=== PATIENT | male | born 1955 | race Two or more races ===

== ENCOUNTER 2024-11-19 09:16 | Outpatient (AMB) | payer MEDICAID, SELFPAY ==
--- NOTE | 2024-11-19 09:20 | PD.ORTHCLVIS ---
Vital signs 11/19/24 09:31 Height 1.7 m Height Method Stated Weight 91.427 kg Weight Measurement Method Standing Scale BMI 31.6 BP 215/112 H Blood Pressure Source Automatic Cuff Blood Pressure Location Left Upper Arm Position Sitting Respiration 18 Pulse 85 Pulse Source Monitor Temp 97.9 F Temp Source Temporal Artery Scan Pulse Oximetry (%) 98 Oxygen Delivery Method Room Air Med/Allergies Allergies & Medications Allergies No Known Allergies Allergy (Verified 11/19/24 09:32) Medication Reconciliation meloxicam 7.5 mg tablet 7.5 mg PO QDAY #45 tabs 11/19/24 [Rx] Exam Exam Breathing is nonlabored. Patient has a normal mood and affect. Bilateral extremities were evaluated and demonstrates sensation intact to light touch. Palpable pedal pulses are present. No significant edema is present. Bilateral hips were examined. The patient has no pain with log roll of the hips. Internal rotation to 30 degrees and external rotation to 30 degrees is painless. Negative FADIR. Left knee was examined today. The left knee is in reasonable alignment. Range of motion from 0-120 degrees. Knee is stable to varus and valgus as well as AP translation with <5mm. Patient has a negative McMurrays. There is no pain with patellofemoral compression and no crepitus noted. The knee is nontender to palpation. On the left knee, there is a soft tissue mass that is mobile on the anterior aspect of the knee in front of the patella The right knee was also examined. The right knee is in varus alignment. Range of motion from 0-115 degrees. Knee is stable to varus and valgus as well as AP translation with <5mm. Patient has a negative McMurrays. There is no pain with patellofemoral compression and no crepitus noted. The knee is tender to palpation medially. Nonweightbearing x-rays from [place] [facility] reviewed dated 05/13/2024. This demonstrates mild to moderate arthritis of the right knee with joint space narrowing. On the MRI there is a posterior horn medial meniscus tear as well Assessment and Plan Problem List (1) Arthritis of knee, right: Status: Acute Plan: Patient is a pleasant 69-year-old male with right knee pain and right knee arthritis. We discussed different treatment options. The patient would like to try anti-inflammatories as well as a cortisone injection. We would need weightbearing x-rays as well. We will get authorization for cortisone injection and see him back at the next visit and to go over x-ray results Advanced Care Planning Discussion Advance care planning discussed with:: patient Office Procedures GNS Level of Care Nursing/Assessment Patient Status: Initial/New Patient Nursing Assessment/Reassesment: Medication Reconciliation, Update PMH in EMR and Vital Signs Coordination of Care: Complex Care and Chronic Disease 1-5, Education Complex Pt/Fam, Consent,records obtained, informed consent, 1 Ins Authorization, Lab and Imaging orders, Results/Orders obtained and Staff clarify orders Special Needs: Language special needs New Patient Charge New Patient Point Assignment: 1124 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 ([id number]) MA Intake Visit Data Collection New Patient or Established: New Patient (never been to [facility]) Reason for Visit:: RIGHT POSTERIOR HORN TEAR Seen by Clinical Staff ONLY (RN/MA): No 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 PCP or OBGYN visit in last 3 months: Yes Hx Now: No Do You Feel Safe at Home: Yes Authorities Contacted: N/A Questionairres Past Medical History Past Medical History Have you ever been diagnosed with any of the following: Neurological Problems Cerebrovascular Accident (CVA): No Transient Ischemic Attacks (TIA): No Dementia: No Alzheimer's Disease: No Parkinson's Disease: No Brain Tumor: No Cardiology Problems Atherosclerotic Heart Disease: No Peripheral Vascular Disease: No Hypercholesterolemia: Yes Aneurysm: No Congestive Heart Failure: No Congenital Heart Disease: No Valvular Heart Disease: No Rheumatic Fever: No Cardiomyopathy: No Hypertension: Yes Subjective Visit Visit for: new patient and knee Immunization / Flu Flu Vaccine in the Last 12 Months: No Flu Vaccine Exclusion Criteria: Refused by Patient History of Present Illness Chief complaint: r>l knee pain Date of 1st surgery (if applicable): 09/17/2024 Patient is a pleasant 69-year-old male with right greater than left knee pain. This has been ongoing for several years but is worse in the last 2 months. He reports the right knee is significantly worse than the left. 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
[2024-11-19 09:31] VITALS: BP 215/112; PULSE 85; RESP 18; TEMP 36.6; O2SAT 98; BMI 31.6
--- NOTE | 2024-11-19 09:33 | XR_ITS ---
Examination: Bilateral knees 2 views Right lateral knee left lateral knee 2 views Bilateral axial knees single view TECHNIQUE: Bilateral AP knees standing single view, bilateral PA knees standing single view flexion Right lateral knee left lateral knee 2 views Bilateral axial knees single view total 5 views Date and time: November 19, 2024, 0939 hours INDICATIONS: Bilateral knee pain months. FINDINGS: Moderate narrowing medial joint space right knee Moderate to advanced osteoarthritis right patellofemoral joint Moderate to advanced osteoarthritis left patellofemoral joint No patellar dislocations IMPRESSION: Osteoarthritis as above
== END 2024-11-19 09:41 | disposition home or self-care (01) ==
LOC: HODSRG 09:16
PROVIDERS: PCP Nurse Practitioner; Referring Provider Nurse Practitioner; Supervising Provider Orthopaedic Surgery Adult Reconstructive Orthopaedic Surgery; Visit Provider Orthopaedic Surgery Adult Reconstructive Orthopaedic Surgery
DX: M17.11 Unilateral primary osteoarthritis, right knee (principal); M25.561 Pain in right knee; M25.562 Pain in left knee; I10 Essential (primary) hypertension; E78.00 Pure hypercholesterolemia, unspecified
CPT/HCPCS: 73564; 99204; G0463

== ENCOUNTER 2024-12-17 08:12 | Outpatient (AMB) | payer MEDICAID, SELFPAY ==
--- NOTE | 2024-12-17 08:26 | ORTHONT_ITS ---
Vital signs 12/17/24 08:27 Height 1.7 m Height Method Measured Weight 90.01 kg Weight Measurement Method Standing Scale BMI 31.1 BP 190/93 H Blood Pressure Source Automatic Cuff Blood Pressure Location Left Upper Arm Position Sitting Respiration 20 Pulse 89 Pulse Source Monitor Temp 97.6 F Temp Source Temporal Artery Scan Pulse Oximetry (%) 95 Oxygen Delivery Method Room Air Med/Allergies Allergies & Medications Allergies No Known Allergies Allergy (Verified 12/17/24 08:28) Medication Reconciliation meloxicam 7.5 mg tablet 7.5 mg PO QDAY #45 tabs 11/19/24 [Rx Confirmed 12/17/24] Exam Exam Breathing is nonlabored. Patient has a normal mood and affect. Bilateral extremities were evaluated and demonstrates sensation intact to light touch. Palpable pedal pulses are present. No significant edema is present. Bilateral hips were examined. The patient has no pain with log roll of the hips. Internal rotation to 30 degrees and external rotation to 30 degrees is painless. Negative FADIR. Left knee was examined today. The left knee is in reasonable alignment. Range of motion from 0-120 degrees. Knee is stable to varus and valgus as well as AP translation with <5mm. Patient has a negative McMurrays. There is no pain with patellofemoral compression and no crepitus noted. The knee is nontender to palpation. On the left knee, there is a soft tissue mass that is mobile on the anterior aspect of the knee in front of the patella The right knee was also examined. The right knee is in varus alignment. Range of motion from 0-115 degrees. Knee is stable to varus and valgus as well as AP translation with <5mm. Patient has a negative McMurrays. There is no pain with patellofemoral compression and no crepitus noted. The knee is tender to palpation medially. Nonweightbearing x-rays from [place] [facility] reviewed dated 05/13/2024. This demonstrates mild to moderate arthritis of the right knee with joint space patricia rowing. On the MRI there is a posterior horn medial meniscus tear as well Weightbearing x-rays demonstrate significant joint space narrowing medially Assessment and Plan Problem List (1) Arthritis of knee, right: Status: Acute Plan: Patient is a pleasant 69-year-old male with right knee pain and right knee arthritis. We discussed different treatment options. The patient would like to try anti-inflammatories as well as a cortisone injection. Recommend knee cortisone injection as patient would like to proceed with conservative treatment at this time. The risks and benefits of the procedure were reviewed with the patient and patient gave verbal consent to continue with the procedure. Procedure: performed by Dr. Genao Using sterile technique the Right knee was thoroughly prepped with alcohol, and approximately 1 cc of Depo-Medrol 80mg/mL and 4 cc of 0.2% ropivacaine was injected without resistance into the medial tibial femoral joint space. The patient tolerated the procedure. Advanced Care Planning Discussion Advance care planning discussed with:: patient Office Procedures GNS Level of Care Nursing/Assessment Patient Status: Established Patient Nursing Assessment/Reassesment: Medication Reconciliation, Orthostatic Vitals, Update PMH in EMR and Vital Signs Coordination of Care: Complex Care and Chronic Disease 1-5, Education Complex Pt/Fam, Consent,records obtained, informed consent, Results/Orders obtained and Staff clarify orders Special Needs: Language special needs Established Patient Charge Established Patient Point Assignment: 105 Established Patient Point Charge: EP Level 3 (80-115) Medication Given Medication Given Medication Given: Yes Documented Dose Given: 1 Route: Infiitration Medication Given Medication Given Medication Given: Yes Documented Dose Given: 4 Route: Infiitration Office Meds methylprednisolone acetate 80 mg/mL suspension for injection Performing Provider: Antwan Genao MD Performing Location: [facility] Administered by: Antwan Genao MD on 12/17/24 08:57 Dose Route Admin Location Dispensed Lot Number Expiration Date [facility] Food Science Technician 80 mg intra-articular 1 mL [id number] 09/20/26 [address]-1 A [facility] ropivacaine (PF) 2 mg/mL (0.2 %) injection solution Performing Provider: Antwan Genao MD Performing Location: [facility] Administered by: Antwan Genao MD on 12/17/24 08:57 Dose Route Admin Location Dispensed Lot Number Expiration Date [facility] Food Science Technician 20 mL Infiltration 20 mL [id number] 02/20/26 70525-611-63 [facility] Intake Visit Data Collection New Patient or Established: Established Patient (seen at [facility] within 3 years) Reason for Visit:: 2 WEEK F/U IMAGING RESULTS Seen by Clinical Staff ONLY (RN/MA): No Floorleader Required: Yes PCP or OBGYN visit in last 3 months: Yes Hx Now: No Do You Feel Safe at Home: Yes Authorities Contacted: N/A Questionairres Past Medical History Past Medical History Have you ever been diagnosed with any of the following: Neurological Problems Cerebrovascular Accident (CVA): No Transient Ischemic Attacks (TIA): No Dementia: No Alzheimer's Disease: No Parkinson's Disease: No Brain Tumor: No Cardiology Problems Atherosclerotic Heart Disease: No Peripheral Vascular Disease: No Hypercholesterolemia: Yes Aneurysm: No Congestive Heart Failure: No Congenital Heart Disease: No Valvular Heart Disease: No Rheumatic Fever: No Cardiomyopathy: No Hypertension: Yes Subjective Visit Visit for: follow up visit and knee Immunization / Flu Flu Vaccine in the Last 12 Months: No Flu Vaccine Exclusion Criteria: Refused by Patient History of Present Illness Chief complaint: 2 WEEK F/U IMAGING RESULTS Date of 1st surgery (if applicable): 09/17/2024 Patient is a pleasant 69-year-old male with right greater than left knee pain. This has been ongoing for several years but is worse in the last 2 months. He reports the right knee is significantly worse than the left. 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
[2024-12-17 08:27] VITALS: BP 190/93; PULSE 89; RESP 20; TEMP 36.4; O2SAT 95; BMI 31.1
== END 2024-12-17 08:51 | disposition home or self-care (01) ==
LOC: HODSRG 08:12
PROVIDERS: PCP Nurse Practitioner; Referring Provider Nurse Practitioner; Supervising Provider Orthopaedic Surgery Adult Reconstructive Orthopaedic Surgery; Visit Provider Orthopaedic Surgery Adult Reconstructive Orthopaedic Surgery
DX: M17.11 Unilateral primary osteoarthritis, right knee (principal); M25.561 Pain in right knee; I10 Essential (primary) hypertension; E78.00 Pure hypercholesterolemia, unspecified
CPT/HCPCS: 20610; 99213; J1010; J2795; G0463

== ENCOUNTER 2025-03-25 08:40 | Outpatient (AMB) | payer MEDICAID, SELFPAY ==
--- NOTE | 2025-03-25 08:57 | ORTHONT_ITS ---
Vital signs 03/25/25 08:58 Height 1.7 m Height Method Measured Weight 93.61 kg Weight Measurement Method Standing Scale BMI 32.3 BP 172/98 H Blood Pressure Source Automatic Cuff Blood Pressure Location Left Upper Arm Position Sitting Respiration 20 Pulse 90 Pulse Source Monitor Temp 98.4 F Temp Source Temporal Artery Scan Pulse Oximetry (%) 95 Oxygen Delivery Method Room Air Med/Allergies Allergies & Medications Allergies No Known Allergies Allergy (Verified 03/25/25 08:58) Medication Reconciliation meloxicam 7.5 mg tablet 7.5 mg PO QDAY #45 tabs 11/19/24 [Rx Confirmed 03/25/25] Exam Exam Breathing is nonlabored. Patient has a normal mood and affect. Bilateral extremities were evaluated and demonstrates sensation intact to light touch. Palpable pedal pulses are present. No significant edema is present. Bilateral hips were examined. The patient has no pain with log roll of the hips. Internal rotation to 30 degrees and external rotation to 30 degrees is painless. Negative FADIR. Left knee was examined today. The left knee is in reasonable alignment. Range of motion from 0-120 degrees. Knee is stable to varus and valgus as well as AP translation with <5mm. Patient has a negative McMurrays. There is no pain with patellofemoral compression and no crepitus noted. The knee is nontender to palpation. On the left knee, there is a soft tissue mass that is mobile on the anterior aspect of the knee in front of the patella The right knee was also examined. The right knee is in varus alignment. Range of motion from 0-115 degrees. Knee is stable to varus and valgus as well as AP translation with <5mm. Patient has a negative McMurrays. There is no pain with patellofemoral compression and no crepitus noted. The knee is tender to palpation medially. Nonweightbearing x-rays from [place] [facility] reviewed dated 05/13/2024. This demonstrates mild to moderate arthritis of the right knee with joint space patricia rowing. On the MRI there is a posterior horn medial meniscus tear as well Weightbearing x-rays demonstrate significant joint space narrowing medially Assessment and Plan Problem List (1) Arthritis of knee, right: Status: Acute Plan: Patient is a pleasant 69-year-old male with right knee pain and right knee arthritis. We discussed different treatment options. The patient would like to try anti-inflammatories as well as a cortisone injection. Recommend knee cortisone injection as patient would like to proceed with conservative treatment at this time. The risks and benefits of the procedure were reviewed with the patient and patient gave verbal consent to continue with the procedure. Procedure: performed by Dr. Genao Using sterile technique the Right knee was thoroughly prepped with alcohol, and approximately 1 cc of Depo-Medrol 80mg/mL and 4 cc of 0.2% ropivacaine was injected without resistance into the medial tibial femoral joint space. The patient tolerated the procedure. Advanced Care Planning Discussion Advance care planning discussed with:: patient Office Procedures GNS Level of Care Nursing/Assessment Patient Status: Established Patient Nursing Assessment/Reassesment: Medication Reconciliation, Update PMH in EMR and Vital Signs Coordination of Care: Complex Care and Chronic Disease 1-5, Education Complex Pt/Fam, Consent,records obtained, informed consent, Results/Orders obtained and Staff clarify orders Established Patient Charge Established Patient Point Assignment: 95 Established Patient Point Charge: EP Level 3 (80-115) Surgical Proc/IM SQ injection Minor Surgical Procedure: Yes (KNEE INJECTION) Medication Given Medication Given Medication Given: Yes Documented Dose Given: 1 Route: Infiitration Medication Given Medication Given Medication Given: Yes Documented Dose Given: 4 Route: Infiitration Office Meds methylprednisolone acetate 80 mg/mL suspension for injection Performing Provider: Antwan Genao MD Performing Location: [facility] Administered by: Antwan Genao MD on 03/25/25 11:28 Dose Route Admin Location Dispensed Lot Number Expiration Date Pack age [facility] Saturation Equipment Operator 80 mg intra-articular 1 mL [id number] 11/20/26 [address]-0 7 [id number] [facility] ropivacaine (PF) 2 mg/mL (0.2 %) injection solution Performing Provider: Antwan Genao MD Performing Location: [facility] Administered by: Antwan Genao MD on 03/25/25 11:28 Dose Route Admin Location Dispensed Lot Number Expiration Date Pack age [facility] Saturation Equipment Operator 20 mL Infiltration 20 mL [id number] 05/23/27 40780-663-00 [id number] [facility] Intake Visit Data Collection New Patient or Established: Established Patient (seen at [facility] within 3 years) Reason for Visit:: 3 MONTH F/U RIGHT KNEE INJECTION Seen by Clinical Staff ONLY (RN/MA): No Side Gluer Required: Yes PCP or OBGYN visit in last 3 months: Yes Hx Now: No Do You Feel Safe at Home: Yes Authorities Contacted: N/A Questionairres Past Medical History Past Medical History Have you ever been diagnosed with any of the following: Neurological Problems Cerebrovascular Accident (CVA): No Transient Ischemic Attacks (TIA): No Dementia: No Alzheimer's Disease: No Parkinson's Disease: No Brain Tumor: No Cardiology Problems Atherosclerotic Heart Disease: No Peripheral Vascular Disease: No Hypercholesterolemia: Yes Aneurysm: No Congestive Heart Failure: No Congenital Heart Disease: No Valvular Heart Disease: No Rheumatic Fever: No Cardiomyopathy: No Hypertension: Yes Subjective Visit Visit for: follow up visit and knee Immunization / Flu Flu Vaccine in the Last 12 Months: No Flu Vaccine Exclusion Criteria: Refused by Patient History of Present Illness Chief complaint: 3 MONTH F/U RT KNEE INJECTION Date of 1st surgery (if applicable): 09/17/2024 Patient is a pleasant 69-year-old male with right greater than left knee pain. This has been ongoing for several years but is worse in the last 2 months. He reports the right knee is significantly worse than the left. 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
[2025-03-25 08:58] VITALS: BP 172/98; PULSE 90; RESP 20; TEMP 36.9; O2SAT 95; BMI 32.3
== END 2025-03-25 09:09 | disposition home or self-care (01) ==
PROVIDERS: PCP Nurse Practitioner; Referring Provider Nurse Practitioner; Supervising Provider Orthopaedic Surgery Adult Reconstructive Orthopaedic Surgery; Visit Provider Orthopaedic Surgery Adult Reconstructive Orthopaedic Surgery
DX: M17.11 Unilateral primary osteoarthritis, right knee (principal); M25.561 Pain in right knee; M25.562 Pain in left knee; I10 Essential (primary) hypertension
CPT/HCPCS: 20610; 99213; J1010; J2795; G0463